=== PATIENT | female | born 1985 | race Caucasian/White ===

== ENCOUNTER → 2020-04-13 11:39 | Outpatient (CLI) | payer OTHER, SELFPAY ==
[2020-04-14 08:26] LABS: Strep Grp B PCR POS for Grp B Strep
== END ==
PROVIDERS: Visit Provider Family Medicine
DX: Z34.90 Encounter for supervision of normal pregnancy, unspecified, unspecified trimester (principal); Z3A.36 36 weeks gestation of pregnancy
CPT/HCPCS: 87653

== ENCOUNTER 2020-05-10 08:48 | Outpatient (CLI) | payer OTHER, SELFPAY ==
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
== END 2020-05-10 10:16 | disposition home or self-care (01) ==
LOC: LABOR 09:22 → OB 05-11 10:02
PROVIDERS: Referring Provider Family Medicine; Visit Provider Family Medicine
DX: O26.893 Other specified pregnancy related conditions, third trimester (principal); N89.8 Other specified noninflammatory disorders of vagina; O48.0 Post-term pregnancy; Z3A.40 40 weeks gestation of pregnancy
CPT/HCPCS: 59025; 84112; G0378; G0379

== ENCOUNTER 2020-05-10 20:55 | Inpatient (IN) | payer OTHER, SELFPAY ==
[2020-05-10 21:32] VITALS: BP 121/72
[2020-05-10 22:20] LABS: Add Manual Diff / Slide Review NO; Basophils Absolute Auto 100 /uL (0-100); Basophils Percent Auto 0.6 % (0-2); Eosinophils Absolute Auto 200 /uL (0-450); Eosinophils Percent Auto 1.8 % (2-4); Hemoglobin 13.1 g/dL (12.0-16.0); Lymphocytes Absolute Auto 2000 /uL (1100-4500); Lymphocytes Percent Auto 17.9 % (25-40); Mean Corpuscular HGB Conc 34.5 % (30-36); Mean Corpuscular Hemoglobin 31.3 PG (26-34); Mean Corpuscular Volume 90.7 fL (80-100); Monocytes Absolute Auto 1000 /uL (0-900); Monocytes Percent Auto 8.9 % (3-14); Neutrophils Absolute Auto 7800 /uL (1500-7000); Neutrophils Percent Auto 70.8 % (50-75); Platelet Count 162 X10^3/uL (150-400); Red Blood Cell Count 4.19 X10^6/uL (4.0-5.2); Red Cell Distribution Width 14.1 % (11.6-14.8)
[2020-05-10] MEDS: PENICILLIN G POTASSIUM 5,000,000 UNIT in DEXTROSE 5% IN WATER 250 ML IV (22:36)
[2020-05-10] MEDS: LACTATED RINGERS 1,000 ML 100 ML IV (22:36)
[2020-05-10 23:23] LABS: COVID19 -Nasal RAPID Negative (Negative)
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
--- NOTE | 2020-05-10 23:58 | P.PCN_ITS ---
Regional Block Pre-procedure Procedure: Continuous Lumbar Epidural for L&D Attending OB provider: Brenda Sullivan PMH/ROS narrative: term labor, no complications Hx: No personal or family history of anesthesia problems. ASA Class: II Labs: Hct 38.0 % (36-46) 05/10/20 22:10 Plt Count 162 X10^3/uL (150-400) 05/10/20 22:10 Medications: Current Medications Generic Name Dose Route Start Last Admin Trade Name Freq PRN Reason Stop Dose Admin Calcium Carbonate 1,000 mg 05/10/20 21:37 Tums PO Q2HR PRN Dyspepsia Fentanyl 50 mcg 05/10/20 21:37 Sublimaze IV Q1H PRN Pain, Moderate (4-6) Lactated Ringer's 1,000 mls @ 100 mls/hr 05/10/20 21:45 05/10/20 22:36 Lactated Ringers IV 100 mls/hr CONT MALLORIE Administration Penicillin G Potassium 3,000,000 unit in 50 mls @ 100 mls/hr 05/11/20 01:30 Penicillin G Potassium IV Q4H MALL[place]IE Ondansetron HCl 4 mg 05/10/20 21:37 Zofran IV Q4HR PRN Nausea And Vomiting Allergies: Allergies Allergy/AdvReac Type Severity Reaction Status Date / Time No Known Allergies Allergy Uncoded 04/27/20 10:51 Procedure Insertion date: 05/10/20 Insertion time: 23:48 Prep/Local: betadine x3 Interspace: L3-4 Patient position: sitting Needle: 18 gauge LayerBoomtead (27g Pencan through Hustead for CSE, clear CSF, 1mL 0.25% MPF bupiv) Loss of resistance with: saline BOLIVAR at (cm): 4 Catheter placed at SKIN (cm): 9 Catheter in SPACE (cm): 5 Insertion: No Blood, No Paresthesia with insertion, No Paresthesia with injection and No Test dose reaction Initial Medications TEST DOSE time: 23:52 TEST DOSE: 1.5% lidocaine with epinephrine 1:200k (mL): 3 BOLUS DOSE time: 23:55 BOLUS DOSE (mL): 3 BOLUS DOSE med: 0.125% bupivacaine with fentanyl 10 mcg/mL (infusate) Infusion INFUSION: 0.125% bupivacaine and with fentanyl 2 mcg/mL Initial rate (mL/hr): 8 Post-procedure Anesthesia time START: 23:38 Anesthesia time END: 01:50
[2020-05-11] MEDS: OXYTOCIN PREMIX 30 UNIT/500 ML PLAST..BAG 999 UNIT IV (01:45)
--- NOTE | 2020-05-11 02:11 | PM.OBPRVD ---
Labor & Delivery Delivery date: 05/11/20 Delivery monitor: external FHT Route of delivery: L&D Laceration Description: Perineal - 2nd Degree and Vaginal - 2nd Degree Delivery repair: chromic Estimated blood loss (mL): 200 Anesthesia type: Epidural Narrative: BRIEF HISTORY: Patient is a 34-year-old at 40 weeks and 4 days who gave on 05/11/20 at []. NELL: 05/07/20 Hospital problems: 40 weeks GBS positive Epidural analgesia STAGE I: Labor Patient came in regular contractions and spontaneous rupture of membranes at 7:30 PM with clear fluid at home. She received an epidural with adequate pain control and progressed to complete at 12:50 A.M.. FHT were category 1 throughout stage 1. She received one dose of penicillin for GBS prophylaxis. STAGE II: Delivery Patient was complete at 12:50 A.M.. A fore-bag ruptured with clear fluid during the second stage. Spontaneous vaginal delivery occurred at 1:37 A.M.. Infant was vertex and MAXIMILIAN. She was immediately placed on mother's abdomen. Cord was clamped and cut after 1 minute delay. Apgars were 9 and 9 at 1 and 5 minutes. No resuscitation of the required beyond drying and stimulating. The second stage of labor lasted 47 minutes. STAGE III: Placenta/Cord Placent delivered at 1:43 A.M. after active management and appeared intact with a three vessel cord. Piticin bolus given after delivery of placenta. A midline second degree vaginal and perineal laceration was repaired with 3-O vicryl with good approximation and hemostatis. EBL: 200 mL. Needle and sponge counts were correct. The vagina was inspected and no items were left in situ. Baby 1: gender: Female Presentation: vertex position: Right Occiput Anterior Placenta delivery description: Spontaneous cord vessel description: 3 Vessels score (1 min): 9 score (5 min): 9
[2020-05-11] MEDS: IBUPROFEN 600 MG TABLET PO ×3 (06:34→20:01)
--- NOTE | 2020-05-11 10:14 | P.PNOB_ITS ---
Subjective - OB Subjective Patient comments: no complaints, pain well controlled and flatus present [place] baby status: doing well and nursing well feeding status: exclusively breast feeding Date Patient Seen: 05/11/20 Time Patient Seen: 07:30 Interval history: Doing well since delivery without complaints. Bleeding is light to moderate. Ambulating without difficulty. Has voided. Exam Vital Signs (past 8 hours): Temperature 98.9? blood pressure 102/61 respirations 16 Narrative Exam Narrative: General: Awake and alert, no acute distress. HEENT: NCAT, EOMI, moist oral mucosa CV: Regular rate and rhythm, no murmurs, rubs or gallops Lungs: CTAB, no wheezes, rales, or rhonchi Abdomen: Soft, nontender; bowel tones active; uterus firm 1 cm below umbilicus Extremities: Warm, no edema Objective Labs Result Diagrams: 05/10/20 22:10 Labs: Laboratory Results - last 24 hr 05/10/20 05/10/20 05/10/20 21:22 22:10 22:10 WBC 11.0 RBC 4.19 Hgb 13.1 Hct 38.0 MCV 90.7 MCH 31.3 MCHC 34.5 RDW 14.1 Plt Count 162 Neut % (Auto) 70.8 Lymph % (Auto) 17.9 L [place] % (Auto) 8.9 Eos % (Auto) 1.8 L Baso % (Auto) 0.6 Neut # (Auto) 7800 H Lymph # (Auto) 2000 [place] # (Auto) 1000 H Eos # (Auto) 200 Baso # (Auto) 100 COVID-19 PCR Negative Blood Type A Negative Antibody Screen Positive Antibody Identification Anti-D Assessment & Plan Assessment and Plan (1) Spontaneous vaginal delivery: Status: Acute (2) Positive GBS test: Status: Acute Plan day: 0 plan OB: routine care Comments: Anticipate discharge home tomorrow. Time Spent With Patient Time: Total time spent is greater than 50% in coordination of care (as documented) at patient's floor/unit and/or counseling patient: Time with patient: less than 15 minutes
[2020-05-11] MEDS: DOCUSATE 100 MG CAPSULE PO ×2 (11:22→20:01)
[2020-05-11] MEDS: PRENATAL VIT,CALC/IRON/FOLIC 1 TABLET 1 TAB PO (11:23)
[2020-05-11] MEDS: DERMOPLAST SPRAY 20% 60 ML 1 SPRAY TOP (11:23)
[2020-05-11] MEDS: OXYCODONE IR 5 MG TABLET PO ×2 (16:19→20:01)
[2020-05-12] MEDS: DOCUSATE 100 MG CAPSULE PO (08:08)
[2020-05-12] MEDS: IBUPROFEN 600 MG TABLET PO (08:08)
[2020-05-12] MEDS: PRENATAL VIT,CALC/IRON/FOLIC 1 TABLET 1 TAB PO (08:08)
--- NOTE | 2020-05-12 09:05 | PM.OBDS.1 ---
Discharge Providers Provider Date of admission: 05/10/20 20:55 Discharge Date: 05/12/20 Consults: 05/12/20 02:10 Consult to [facility] [employer] Routine Comment: Discharge provider: Brenda Sullivan DO Summary Hospital Course Date Patient Seen: 05/12/20 Time Patient Seen: 08:30 Procedures: Spontaneous vaginal delivery Epidural analgesia Hospital Course: Patient is a 34-year-old G3 now P3 after uncomplicated spontaneous vaginal delivery at 40 weeks and 4 days on 05/11/20. Patient presented in active labor with spontaneous rupture of membranes at home. She was GBS positive and received 1 dose of penicillin prior to delivery of a vigorous female infant. She did have rupture of membranes during pushing suggesting that she had a high leak or that the bag of water resealed during labor. A second-degree vaginal and perineal laceration was repaired with good hemostasis. course was uncomplicated. Breast-feeding was going well. Bleeding was moderate. No issues with ambulation, voiding or passing flatus. Pain well controlled with ibuprofen and small amounts of oxycodone. Patient is A negative and was found to be antibody positive on admission for anti-D. This is likely due to RhoGAM received during the . Infant is O positive, Kennedy negative. maternal hemorrhage screen was done and returned positive. Suspect a small maternal hemorrhage given reassuring infant and maternal status. Kleinhauer-Betke stain is pending to determine the amount of hemoglobin is pending and is not expected to be resulted until 05/14/20. Discussed situation with Dr. Mon, maintenance of way supervisor. Will give the standard dose of RhoGAM and discharge today. Patient will be seen in clinic in 2 days with her infant and we should have a result by then. If indicated, will give additional RhoGAM at that time. Patient was advised to call for fevers, severe pain or bleeding through more than a pad an hour. Follow-up in clinic in 2 days with . Peripartum Data Infant Delivery Method: Natural Vaginal Laceration description: Perineal - 2nd Degree complications: none [place] 1: Gender: Female Disposition of : home Discharge Diagnosis (1) Spontaneous vaginal delivery: Status: Acute (2) Positive GBS test: Status: Acute (3) 40 weeks gestation of : Status: Acute Time Spent with Patient Time attestation: Total time spent providing and/or coordinating discharge services: Objective Labs Result Diagrams: 05/10/20 22:10 Labs: Laboratory Results - last 24 hr 05/12/20 06:35 Maternal Bleed Positive H Exam Vital Signs (past 8 hours): Temperature 97.7? blood pressure 114/68 heart rate 64 respirations 17 Narrative Exam Narrative: General: Awake and alert, no acute distress. HEENT: NCAT, EOMI, moist oral mucosa CV: Regular rate and rhythm, no murmurs, rubs or gallops Lungs: CTAB, no wheezes, rales, or rhonchi Abdomen: Soft, nontender; bowel tones active; uterus firm 1 cm below umbilicus Extremities: Warm, no edema Discharge Plan Discharge Plan Patient Disposition: Home Discharge orders & Medications Prescriptions: New docusate sodium [DOK] 100 mg Capsule 100 mg PO BID Qty: 30 RF: 0 ibuprofen 600 mg Tablet 600 mg PO Q6HR PRN (Reason: Pain, Mild (1-3)) Qty: 30 RF: 0 oxycodone 5 mg Tablet 5 mg PO Q4HR PRN (Reason: Pain, Moderate (4-6)) Qty: 10 RF: 0 Continued prenat.vits,veronica,[id number] Tablet 1 tab PO DAILY RF: 0 Follow up/Referrals: Brenda Sullivan DO [Physician] - 6 Weeks (Follow up with Dr Sullivan in 6 weeks. Make appointment when in office this week.) Visit Report/Discharge Packet Stand Alone Forms: Discharge: Care Visit Report Forms: Patient Portal/API, Stroke Signs & Symptoms
[2020-05-12] MEDS: RHO(D) IMMUNE GLOBULIN 1,500 UNIT SYRINGE 1500 UNIT IM (12:26)
[2020-05-12 14:11] VITALS: BP 121/72
== END 2020-05-12 14:00 | disposition home or self-care (01) | DRG 807 ==
PROVIDERS: Admitting Provider Family Medicine; Referring Provider Family Medicine; Visit Provider Family Medicine
DX: O70.1 Second degree perineal laceration during delivery (principal); Z37.0 Single live birth; Z3A.40 40 weeks gestation of pregnancy; O99.824 Streptococcus B carrier state complicating childbirth; Z11.59 Encounter for screening for other viral diseases; O26.893 Other specified pregnancy related conditions, third trimester; N89.8 Other specified noninflammatory disorders of vagina; O48.0 Post-term pregnancy
CPT/HCPCS: 01967; 59025; 59050; 59410; 84112; 85025; 85460; 85461; 86850; 86870; 86900; 86901; 87635; G0379; J2540; J2590; J2790